=== PATIENT | male | born 1995 | race Two or more races ===

== ENCOUNTER 2017-08-06 17:48 | Inpatient (IN) | payer OTHER ==
[~2017-08-06] VITALS: Ht 177.8 cm; Wt 70.1 kg
[2017-08-06] MEDS ORDERED: MethylPREDNISolone SOD SUCC 1,000 MG in SODIUM CHLORIDE 0.9% 50 ML IV ONE (19:00)
[2017-08-06 19:08] LABS: BASOPHILS % (AUTO) 0.5 % (0.0-2.0); EOSINOPHILS % (AUTO) 1.4 % (1.0-6.0); HEMOGLOBIN 16.1 g/dL (13.5-17.5); LYMPHOCYTES # (AUTO) 1.6 K/uL (1.0-4.8); LYMPHOCYTES % (AUTO) 27.6 % (22.0-44.0); MEAN CORPUSCULAR HEMOGLOBIN 28.7 pg (26.0-34.0); MEAN CORPUSCULAR HGB CONC 33.6 G/dL (31.0-37.0); MEAN CORPUSCULAR VOLUME 85 fL (80-100); MONOCYTES # (AUTO) 0.7 K/uL (0.1-1.0); MONOCYTES % (AUTO) 11.1 % (2.0-9.0); NEUTROPHILS # (AUTO) 3.5 K/uL (1.8-7.7); NEUTROPHILS % (AUTO) 59.4 % (40.0-70.0); PLATELET COUNT (AUTO) 203 K/uL (150-450); RED BLOOD CELL COUNT(AUTO) 5.63 MIL/uL (4.50-5.90); RED CELL DISTRIBUTION WIDTH 13.1 % (11.5-14.5); WHITE BLOOD COUNT (AUTO) 5.9 K/uL (4.5-11.0)
[2017-08-06 19:21] LABS: ANION GAP 11 mmol/L (8-16); CARBON DIOXIDE 27 mmol/L (22-29); CHLORIDE 104 mmol/L (98-107); CREATININE 0.91 mg/dL (0.60-1.30); GLOMERULAR FILTR. RATE CALC > 60 mL/min (>60); POTASSIUM 4.5 mmol/L (3.5-5.1); SODIUM SERUM 142 mmol/L (136-145); UREA NITROGEN, BLOOD 5 mg/dL (7-18)
[2017-08-06 19:27] LABS: ALANINE AMINOTRANSFERASE 32 U/L (12-78); ALBUMIN 4.5 g/dL (3.4-5.0); ASPARTATE AMINOTRANSFERASE 35 U/L (15-37); BILIRUBIN,TOTAL 0.6 mg/dL (0.1-1.0)
[2017-08-06] MEDS ORDERED: GADOBUTROL 1 MMOL/ML 10 ML VIAL IVP ONE (19:33)
[2017-08-06 20:40] LABS: ERYTHROCYTE SEDIMENTATION RATE 0 MM/HR (0-15)
[2017-08-06] MEDS ORDERED: ACETAMINOPHEN 325 MG TABLET PO PRN (20:45)
[2017-08-06] MEDS ORDERED: MAGNESIUM HYDROXIDE SUSPENSION 30 ML UDCUP PO PRN (20:45)
[2017-08-06] MEDS ORDERED: ZOLPIDEM TARTRATE 5 MG TABLET PO PRN (20:45)
[2017-08-06] MEDS ORDERED: OxyCODONE HCL/ACETAMINOPHEN 5-325 MG TABLET PO PRN (20:45)
[2017-08-06 21:00] VITALS: BP 118/68
[2017-08-06] MEDS ORDERED: DEXTROSE 50%-WATER 25 GM/50 ML SYRINGE IVP PRN (21:00)
[2017-08-06] MEDS: PANTOPRAZOLE SODIUM 40 MG DR TABLET PO SCH (21:35)
[2017-08-06] MEDS: DOCUSATE SODIUM 100 MG CAPSULE PO SCH (21:36)
[2017-08-06] MEDS: CALCIUM CARBONATE 500 MG CHEWABLE TABLET CHEW SCH (21:36)
[2017-08-06 21:42] LABS: GLUCOSE,POINT OF CARE 88 MG/DL (70-110)
[2017-08-06 23:52] VITALS: BP 111/68
[2017-08-07 05:14] VITALS: BP 106/65
[2017-08-07] MEDS: INSULIN ASPART 100 UNITS/ML SQ PRN ×3 (05:57→19:54)
[2017-08-07 06:07] LABS: GLUCOSE COMMENT 1 Received Meds; GLUCOSE,POINT OF CARE 201 MG/DL (70-110)
[2017-08-07] MEDS: DOCUSATE SODIUM 100 MG CAPSULE PO SCH ×2 (09:37→19:53)
[2017-08-07] MEDS: PANTOPRAZOLE SODIUM 40 MG DR TABLET PO SCH (09:37)
[2017-08-07] MEDS: CALCIUM CARBONATE 500 MG CHEWABLE TABLET CHEW SCH ×3 (09:37→19:53)
[2017-08-07 11:41] VITALS: BP 113/74
[2017-08-07 14:12] LABS: GLUCOSE COMMENT 1 Received Meds; GLUCOSE,POINT OF CARE 158 MG/DL (70-110)
[2017-08-07 18:02] LABS: GLUCOSE,POINT OF CARE 133 MG/DL (70-110)
[2017-08-07] MEDS ORDERED: SODIUM CHLORIDE 0.9% 250 ML IV ONE (18:15)
[2017-08-07] MEDS ORDERED: SODIUM CHLORIDE 0.9% IV SCH (19:00)
[2017-08-07] MEDS ORDERED: METHYLPREDNISOLONE SOD SUCC IV SCH (19:00)
[2017-08-07 20:11] VITALS: BP 111/63
[2017-08-07 20:33] LABS: GLUCOSE COMMENT 1 Received Meds; GLUCOSE,POINT OF CARE 147 MG/DL (70-110)
[2017-08-08] VITALS (7 sets, daily range): BP systolic 90–131; BP diastolic 54–74
[2017-08-08] MEDS: INSULIN ASPART 100 UNITS/ML SQ PRN ×2 (05:38→17:53)
[2017-08-08 05:47] LABS: GLUCOSE COMMENT 1 Received Meds; GLUCOSE,POINT OF CARE 174 MG/DL (70-110)
[2017-08-08] MEDS: CALCIUM CARBONATE 500 MG CHEWABLE TABLET CHEW SCH ×3 (08:07→20:47)
[2017-08-08] MEDS: DOCUSATE SODIUM 100 MG CAPSULE PO SCH ×2 (08:07→20:47)
[2017-08-08] MEDS: PANTOPRAZOLE SODIUM 40 MG DR TABLET PO SCH (08:07)
[2017-08-08 11:37] LABS: GLUCOSE COMMENT 1 Received Meds; GLUCOSE,POINT OF CARE 105 MG/DL (70-110)
[2017-08-08] MEDS: MethylPREDNISolone SOD SUCC 1,000 MG in SODIUM CHLORIDE 0.9% 50 ML IV SCH (12:40)
[2017-08-08 17:31] LABS: GLUCOSE COMMENT 1 Received Meds; GLUCOSE,POINT OF CARE 170 MG/DL (70-110)
[2017-08-08 23:22] LABS: GLUCOSE,POINT OF CARE 137 MG/DL (70-110)
[2017-08-09 04:59] VITALS: BP 111/63
[2017-08-09 06:37] LABS: GLUCOSE,POINT OF CARE 125 MG/DL (70-110)
[2017-08-09 07:27] VITALS: BP 104/63
[2017-08-09] MEDS ORDERED: GADOBUTROL 1 MMOL/ML 10 ML VIAL IVP ONE (08:08)
[2017-08-09] MEDS: PANTOPRAZOLE SODIUM 40 MG DR TABLET PO SCH (09:18)
[2017-08-09] MEDS: CALCIUM CARBONATE 500 MG CHEWABLE TABLET CHEW SCH ×3 (09:18→20:22)
[2017-08-09] MEDS: DOCUSATE SODIUM 100 MG CAPSULE PO SCH ×2 (09:18→20:23)
[2017-08-09] MEDS: MethylPREDNISolone SOD SUCC 1,000 MG in SODIUM CHLORIDE 0.9% 50 ML IV SCH (11:31)
[2017-08-09 11:36] VITALS: BP 110/71
[2017-08-09 11:47] LABS: GLUCOSE,POINT OF CARE 91 MG/DL (70-110)
[2017-08-09 15:43] VITALS: BP 107/54
[2017-08-09] MEDS: INSULIN ASPART 100 UNITS/ML SQ PRN ×2 (17:44→20:23)
[2017-08-09 19:42] VITALS: BP 117/68
[2017-08-09 19:57] LABS: GLUCOSE,POINT OF CARE 145 MG/DL (70-110)
[2017-08-09 21:12] LABS: GLUCOSE COMMENT 1 Received Meds; GLUCOSE,POINT OF CARE 145 MG/DL (70-110)
[2017-08-09 23:54] VITALS: BP 105/54
[2017-08-10 04:43] VITALS: BP 117/67
[2017-08-10 06:03] LABS: GLUCOSE,POINT OF CARE 110 MG/DL (70-110)
[2017-08-10 07:34] VITALS: BP 104/69
[2017-08-10] MEDS: PANTOPRAZOLE SODIUM 40 MG DR TABLET PO SCH (08:32)
[2017-08-10] MEDS: CALCIUM CARBONATE 500 MG CHEWABLE TABLET CHEW SCH ×3 (08:32→20:32)
[2017-08-10] MEDS: DOCUSATE SODIUM 100 MG CAPSULE PO SCH ×2 (08:32→20:32)
[2017-08-10 11:23] VITALS: BP 109/78
[2017-08-10 12:13] LABS: GLUCOSE,POINT OF CARE 69 MG/DL (70-110)
[2017-08-10] MEDS: MethylPREDNISolone SOD SUCC 1,000 MG in SODIUM CHLORIDE 0.9% 50 ML IV SCH (13:16)
[2017-08-10 16:22] VITALS: BP 110/66
[2017-08-10 16:26] LABS: INR 1.1 (0.9-1.1); PROTHROMBIN TIME 11.2 SEC (9.4-11.6)
[2017-08-10] MEDS: INSULIN ASPART 100 UNITS/ML SQ PRN ×2 (17:50→23:33)
[2017-08-10 17:57] LABS: GLUCOSE COMMENT 1 Received Meds; GLUCOSE,POINT OF CARE 160 MG/DL (70-110)
[2017-08-10 19:55] VITALS: BP 112/72
[2017-08-10 22:02] LABS: GLUCOSE,POINT OF CARE 192 MG/DL (70-110)
[2017-08-11 00:20] VITALS: BP 113/63
[2017-08-11 04:20] VITALS: BP 101/56
[2017-08-11 06:17] LABS: GLUCOSE,POINT OF CARE 113 MG/DL (70-110)
[2017-08-11 06:36] LABS: INR 1.1 (0.9-1.1); PROTHROMBIN TIME 11.1 SEC (9.4-11.6)
[2017-08-11 06:49] LABS: HEMATOCRIT 47.5 % (41-53); HEMOGLOBIN 15.7 g/dL (13.5-17.5); MEAN CORPUSCULAR HEMOGLOBIN 28.6 pg (26.0-34.0); MEAN CORPUSCULAR HGB CONC 33.1 G/dL (31.0-37.0); MEAN CORPUSCULAR VOLUME 87 fL (80-100); RED BLOOD CELL COUNT(AUTO) 5.48 MIL/uL (4.50-5.90); RED CELL DISTRIBUTION WIDTH 13.1 % (11.5-14.5)
[2017-08-11 06:50] LABS: BASOPHILS % (AUTO) 0.1 % (0.0-2.0); EOSINOPHILS % (AUTO) 0 % (1.0-6.0); LYMPHOCYTES % (AUTO) 6.8 % (22.0-44.0); MONOCYTES # (AUTO) 0.5 K/uL (0.1-1.0); MONOCYTES % (AUTO) 3.7 % (2.0-9.0); NEUTROPHILS # (AUTO) 12.5 K/uL (1.8-7.7); NEUTROPHILS % (AUTO) 89.4 % (40.0-70.0); PLATELET COUNT (AUTO) 203 K/uL (150-450)
[2017-08-11 06:51] LABS: RBC MORPHOLOGY COMMENT NORMAL RBC MORPH
[2017-08-11 07:03] LABS: ALANINE AMINOTRANSFERASE 25 U/L (12-78); ALBUMIN 3.8 g/dL (3.4-5.0); ANION GAP 8 mmol/L (8-16); ASPARTATE AMINOTRANSFERASE 10 U/L (15-37); BILIRUBIN,TOTAL 0.4 mg/dL (0.1-1.0); CARBON DIOXIDE 26 mmol/L (22-29); CHLORIDE 106 mmol/L (98-107); CREATININE 0.64 mg/dL (0.60-1.30); GLOMERULAR FILTR. RATE CALC > 60 mL/min (>60); PHOSPHORUS 4.4 mg/dL (2.5-4.9); SODIUM SERUM 140 mmol/L (136-145); TOTAL PROTEIN, SERUM 7.1 g/dL (6.4-8.2); UREA NITROGEN, BLOOD 7 mg/dL (7-18)
[2017-08-11] MEDS ORDERED: FentaNYL CITRATE-PF 100 MCG/2 ML VIAL ONE (07:12)
[2017-08-11] MEDS ORDERED: MIDAZOLAM HCL 2 MG/2 ML VIAL ONE (07:12)
[2017-08-11] MEDS ORDERED: CALCIUM GLUCONATE 100 MG/ML 10 ML IVP ONE (07:45)
[2017-08-11] MEDS ORDERED: SODIUM CITRATE 4% CATH FLUSH 5 ML SYRINGE IVP PRN (07:45)
[2017-08-11] MEDS ORDERED: LIDOCAINE HCL/PF 1% 30 ML VIAL ONE (07:57)
[2017-08-11] MEDS ORDERED: HEPARIN SODIUM 1000 UNITS/NS 500 ML ONE (07:57)
[2017-08-11] MEDS ORDERED: ALBUMIN HUMAN IV ONE ×2 (08:00)
[2017-08-11] MEDS ORDERED: HEPARIN SODIUM,PORCINE 1,000 UNITS/ML 10 ML VIAL ONE (08:03)
[2017-08-11] MEDS ORDERED: SODIUM CITRATE 4% IVCATH PRN ×2 (08:30)
[2017-08-11 09:57] VITALS: BP 118/71
[2017-08-11] MEDS ORDERED: SODIUM CHLORIDE 0.9% 1,000 ML IV ONE (10:18)
[2017-08-11] MEDS ORDERED: SODIUM CHLORIDE 0.9% 500 ML IV ONE (10:18)
[2017-08-11] MEDS ORDERED: CALCIUM GLUCONATE 3,000 MG in SODIUM CHLORIDE 0.9% 250 ML IV ONE (11:00)
[2017-08-11 11:19] VITALS: BP 115/69
[2017-08-11] MEDS: DOCUSATE SODIUM 100 MG CAPSULE PO SCH ×2 (11:29→21:15)
[2017-08-11] MEDS: PANTOPRAZOLE SODIUM 40 MG DR TABLET PO SCH (11:29)
[2017-08-11] MEDS: CALCIUM CARBONATE 500 MG CHEWABLE TABLET CHEW SCH ×7 (11:29→21:15)
[2017-08-11] MEDS ORDERED: ALENDRONATE SODIUM 70 MG TABLET PO ONE (11:45)
[2017-08-11 12:52] LABS: GLUCOSE,POINT OF CARE 108 MG/DL (70-110)
[2017-08-11 15:18] VITALS: BP 110/63
[2017-08-11] MEDS ORDERED: SODIUM CITRATE 4% CATH FLUSH 5 ML SYRINGE IVCATH PRN (15:30)
[2017-08-11] MEDS: PredniSONE 20 MG TABLET PO SCH (16:39)
[2017-08-11 18:12] LABS: BASOPHILS % (AUTO) 0.4 % (0.0-2.0); EOSINOPHILS % (AUTO) 0.1 % (1.0-6.0); HEMATOCRIT 52.8 % (41-53); HEMOGLOBIN 17.6 g/dL (13.5-17.5); LYMPHOCYTES # (AUTO) 2.4 K/uL (1.0-4.8); LYMPHOCYTES % (AUTO) 11.6 % (22.0-44.0); MEAN CORPUSCULAR HEMOGLOBIN 28.8 pg (26.0-34.0); MEAN CORPUSCULAR HGB CONC 33.3 G/dL (31.0-37.0); MEAN CORPUSCULAR VOLUME 86 fL (80-100); MONOCYTES # (AUTO) 2.1 K/uL (0.1-1.0); MONOCYTES % (AUTO) 10.2 % (2.0-9.0); NEUTROPHILS % (AUTO) 77.7 % (40.0-70.0); PLATELET COUNT (AUTO) 196 K/uL (150-450); RED BLOOD CELL COUNT(AUTO) 6.11 MIL/uL (4.50-5.90); RED CELL DISTRIBUTION WIDTH 12.9 % (11.5-14.5); WHITE BLOOD COUNT (AUTO) 20.6 K/uL (4.5-11.0)
[2017-08-11 18:24] LABS: ANION GAP 8 mmol/L (8-16); CALCIUM, TOTAL 9.1 mg/dL (8.8-10.5); CARBON DIOXIDE 32 mmol/L (22-29); CHLORIDE 107 mmol/L (98-107); CREATININE 0.87 mg/dL (0.60-1.30); GLOMERULAR FILTR. RATE CALC > 60 mL/min (>60); POTASSIUM 4.3 mmol/L (3.5-5.1); SODIUM SERUM 147 mmol/L (136-145); UREA NITROGEN, BLOOD 8 mg/dL (7-18)
[2017-08-11 18:27] LABS: PHOSPHORUS 4.2 mg/dL (2.5-4.9)
[2017-08-11 19:27] LABS: GLUCOSE,POINT OF CARE 122 MG/DL (70-110)
[2017-08-11 20:00] VITALS: BP 118/62
[2017-08-11] MEDS: INSULIN ASPART 100 UNITS/ML SQ PRN (21:22)
[2017-08-11 21:51] LABS: GLUCOSE,POINT OF CARE 150 MG/DL (70-110)
[2017-08-12] VITALS (7 sets, daily range): BP systolic 106–125; BP diastolic 50–72
[2017-08-12] MEDS ORDERED: CALCIUM GLUCONATE 3,000 MG in SODIUM CHLORIDE 0.9% 250 ML IV ONE (06:00)
[2017-08-12] MEDS ORDERED: ALBUMIN HUMAN IV ONE ×2 (06:00→10:00)
[2017-08-12 07:03] LABS: GLUCOSE,POINT OF CARE 104 MG/DL (70-110)
[2017-08-12] MEDS ORDERED: SODIUM CHLORIDE 0.9% 1,000 ML IV ONE (08:22)
[2017-08-12] MEDS: PANTOPRAZOLE SODIUM 40 MG DR TABLET PO SCH (08:25)
[2017-08-12] MEDS: DOCUSATE SODIUM 100 MG CAPSULE PO SCH ×2 (08:25→22:15)
[2017-08-12] MEDS: PredniSONE 20 MG TABLET PO SCH (08:25)
[2017-08-12 09:38] LABS: BASOPHILS % (AUTO) 0.3 % (0.0-2.0); EOSINOPHILS % (AUTO) 0.1 % (1.0-6.0); HEMATOCRIT 49.1 % (41-53); HEMOGLOBIN 16.3 g/dL (13.5-17.5); LYMPHOCYTES # (AUTO) 1.7 K/uL (1.0-4.8); MEAN CORPUSCULAR HEMOGLOBIN 28.7 pg (26.0-34.0); MEAN CORPUSCULAR HGB CONC 33.1 G/dL (31.0-37.0); MEAN CORPUSCULAR VOLUME 87 fL (80-100); MONOCYTES # (AUTO) 1.5 K/uL (0.1-1.0); MONOCYTES % (AUTO) 9.2 % (2.0-9.0); NEUTROPHILS # (AUTO) 12.6 K/uL (1.8-7.7); NEUTROPHILS % (AUTO) 79.4 % (40.0-70.0); PLATELET COUNT (AUTO) 163 K/uL (150-450); RED BLOOD CELL COUNT(AUTO) 5.66 MIL/uL (4.50-5.90); RED CELL DISTRIBUTION WIDTH 13.1 % (11.5-14.5); WHITE BLOOD COUNT (AUTO) 15.9 K/uL (4.5-11.0)
[2017-08-12 09:51] LABS: ANION GAP 8 mmol/L (8-16); CALCIUM, TOTAL 8.7 mg/dL (8.8-10.5); CARBON DIOXIDE 29 mmol/L (22-29); CHLORIDE 106 mmol/L (98-107); CREATININE 0.83 mg/dL (0.60-1.30); GLOMERULAR FILTR. RATE CALC > 60 mL/min (>60); POTASSIUM 3.8 mmol/L (3.5-5.1); SODIUM SERUM 143 mmol/L (136-145); UREA NITROGEN, BLOOD 7 mg/dL (7-18)
[2017-08-12 09:55] LABS: PHOSPHORUS 3.4 mg/dL (2.5-4.9)
[2017-08-12 11:25] LABS: INR 1.1 (0.9-1.1); PROTHROMBIN TIME 11.9 SEC (9.4-11.6)
[2017-08-12] MEDS: CALCIUM CARBONATE 500 MG CHEWABLE TABLET CHEW SCH ×5 (11:30→22:15)
[2017-08-12 14:17] LABS: GLUCOSE,POINT OF CARE 96 MG/DL (70-110)
[2017-08-12 17:42] LABS: GLUCOSE,POINT OF CARE 124 MG/DL (70-110)
[2017-08-13 02:07] LABS: GLUCOSE,POINT OF CARE 114 MG/DL (70-110)
[2017-08-13 04:24] VITALS: BP 103/59
[2017-08-13 06:30] LABS: BASOPHILS % (AUTO) 0.3 % (0.0-2.0); EOSINOPHILS % (AUTO) 0.9 % (1.0-6.0); HEMATOCRIT 45.3 % (41-53); LYMPHOCYTES # (AUTO) 3.5 K/uL (1.0-4.8); LYMPHOCYTES % (AUTO) 24.6 % (22.0-44.0); MEAN CORPUSCULAR HEMOGLOBIN 28.8 pg (26.0-34.0); MEAN CORPUSCULAR HGB CONC 33.2 G/dL (31.0-37.0); MEAN CORPUSCULAR VOLUME 87 fL (80-100); MONOCYTES # (AUTO) 1.6 K/uL (0.1-1.0); NEUTROPHILS # (AUTO) 9.1 K/uL (1.8-7.7); NEUTROPHILS % (AUTO) 63.2 % (40.0-70.0); PLATELET COUNT (AUTO) 151 K/uL (150-450); RED BLOOD CELL COUNT(AUTO) 5.21 MIL/uL (4.50-5.90); RED CELL DISTRIBUTION WIDTH 13.2 % (11.5-14.5); WHITE BLOOD COUNT (AUTO) 14.4 K/uL (4.5-11.0)
[2017-08-13 06:46] LABS: INR 1.1 (0.9-1.1); PROTHROMBIN TIME 11.5 SEC (9.4-11.6)
[2017-08-13 07:01] LABS: GLUCOSE,POINT OF CARE 69 MG/DL (70-110)
[2017-08-13 07:07] LABS: GLUCOSE,POINT OF CARE 158 MG/DL (70-110)
[2017-08-13 07:22] VITALS: BP 105/58
[2017-08-13 07:22] LABS: ANION GAP 7 mmol/L (8-16); CALCIUM, TOTAL 8.3 mg/dL (8.8-10.5); CARBON DIOXIDE 28 mmol/L (22-29); CHLORIDE 106 mmol/L (98-107); CREATININE 0.65 mg/dL (0.60-1.30); GLOMERULAR FILTR. RATE CALC > 60 mL/min (>60); PHOSPHORUS 4.1 mg/dL (2.5-4.9); POTASSIUM 3.8 mmol/L (3.5-5.1); SODIUM SERUM 141 mmol/L (136-145); UREA NITROGEN, BLOOD 9 mg/dL (7-18)
[2017-08-13] MEDS ORDERED: CALCIUM OYSTER SHELL 500 MG TABLET PO ONE (08:00)
[2017-08-13] MEDS ORDERED: CALCIUM GLUCONATE 100 MG/ML 10 ML IVP ONE (08:00)
[2017-08-13] MEDS ORDERED: ALBUMIN HUMAN IV ONE (08:00)
[2017-08-13] MEDS ORDERED: CALCIUM GLUCONATE 3,000 MG in SODIUM CHLORIDE 0.9% 250 ML IV ONE (08:15)
[2017-08-13] MEDS: DOCUSATE SODIUM 100 MG CAPSULE PO SCH ×2 (09:21→20:36)
[2017-08-13] MEDS: PredniSONE 20 MG TABLET PO SCH (09:21)
[2017-08-13] MEDS: PANTOPRAZOLE SODIUM 40 MG DR TABLET PO SCH (09:21)
[2017-08-13] MEDS: CALCIUM CARBONATE 500 MG CHEWABLE TABLET CHEW SCH ×3 (09:22→15:20)
[2017-08-13 11:20] VITALS: BP 112/59
[2017-08-13 11:42] LABS: ANION GAP 8 mmol/L (8-16); CALCIUM, TOTAL 8.9 mg/dL (8.8-10.5); CARBON DIOXIDE 27 mmol/L (22-29); CHLORIDE 107 mmol/L (98-107); CREATININE 0.66 mg/dL (0.60-1.30); GLOMERULAR FILTR. RATE CALC > 60 mL/min (>60); POTASSIUM 3.9 mmol/L (3.5-5.1); SODIUM SERUM 142 mmol/L (136-145); UREA NITROGEN, BLOOD 7 mg/dL (7-18)
[2017-08-13] MEDS ORDERED: SODIUM CHLORIDE 0.9% 1,000 ML IV ONE (14:04)
[2017-08-13 15:26] VITALS: BP 119/54
[2017-08-13 17:24] LABS: GLUCOSE,POINT OF CARE 101 MG/DL (70-110)
[2017-08-13 17:42] LABS: GLUCOSE,POINT OF CARE 94 MG/DL (70-110)
[2017-08-13 20:16] VITALS: BP 122/74
[2017-08-13] MEDS ORDERED: CALCIUM OYSTER SHELL 500 MG TABLET PO SCH (21:00)
[2017-08-13 21:17] LABS: GLUCOSE,POINT OF CARE 107 MG/DL (70-110)
[2017-08-13 23:29] VITALS: BP 111/66
[2017-08-14 04:16] VITALS: BP 116/64
[2017-08-14 06:04] LABS: BASOPHILS % (AUTO) 0.2 % (0.0-2.0); EOSINOPHILS % (AUTO) 1.3 % (1.0-6.0); HEMATOCRIT 45.9 % (41-53); HEMOGLOBIN 15.3 g/dL (13.5-17.5); LYMPHOCYTES # (AUTO) 3.9 K/uL (1.0-4.8); LYMPHOCYTES % (AUTO) 24.8 % (22.0-44.0); MEAN CORPUSCULAR HEMOGLOBIN 28.9 pg (26.0-34.0); MEAN CORPUSCULAR HGB CONC 33.2 G/dL (31.0-37.0); MEAN CORPUSCULAR VOLUME 87 fL (80-100); MONOCYTES # (AUTO) 1.5 K/uL (0.1-1.0); MONOCYTES % (AUTO) 9.8 % (2.0-9.0); NEUTROPHILS # (AUTO) 10.1 K/uL (1.8-7.7); NEUTROPHILS % (AUTO) 63.9 % (40.0-70.0); PLATELET COUNT (AUTO) 155 K/uL (150-450); RED BLOOD CELL COUNT(AUTO) 5.29 MIL/uL (4.50-5.90); RED CELL DISTRIBUTION WIDTH 13.3 % (11.5-14.5); WHITE BLOOD COUNT (AUTO) 15.8 K/uL (4.5-11.0)
[2017-08-14 06:18] LABS: INR 1.4 (0.9-1.1); PROTHROMBIN TIME 14.3 SEC (9.4-11.6)
[2017-08-14 06:37] LABS: ANION GAP 9 mmol/L (8-16); CALCIUM, TOTAL 8.6 mg/dL (8.8-10.5); CARBON DIOXIDE 27 mmol/L (22-29); CHLORIDE 107 mmol/L (98-107); GLOMERULAR FILTR. RATE CALC > 60 mL/min (>60); PHOSPHORUS 4.2 mg/dL (2.5-4.9); POTASSIUM 3.8 mmol/L (3.5-5.1); SODIUM SERUM 143 mmol/L (136-145); UREA NITROGEN, BLOOD 5 mg/dL (7-18)
[2017-08-14 07:02] LABS: GLUCOSE,POINT OF CARE 100 MG/DL (70-110)
[2017-08-14 07:02] LABS: GLUCOSE,POINT OF CARE 65 MG/DL (70-110)
[2017-08-14 07:30] VITALS: BP 113/63
[2017-08-14] MEDS ORDERED: CALCIUM OYSTER SHELL 500 MG TABLET PO SCH (09:00)
[2017-08-14] MEDS: PANTOPRAZOLE SODIUM 40 MG DR TABLET PO SCH (09:33)
[2017-08-14] MEDS: PredniSONE 20 MG TABLET PO SCH (09:34)
[2017-08-14] MEDS: DOCUSATE SODIUM 100 MG CAPSULE PO SCH ×2 (09:34→20:00)
[2017-08-14] MEDS: CALCIUM OYSTER SHELL 500 MG TABLET PO SCH ×3 (09:37→20:00)
[2017-08-14] MEDS ORDERED: HEPARIN SODIUM,PORCINE 1,000 UNITS/ML VIAL IVP ONE (10:57)
[2017-08-14 11:24] VITALS: BP 106/69
[2017-08-14 12:48] LABS: GLUCOSE,POINT OF CARE 121 MG/DL (70-110)
[2017-08-14 15:43] VITALS: BP 132/62
[2017-08-14 17:33] LABS: GLUCOSE,POINT OF CARE 229 MG/DL (70-110)
[2017-08-14] MEDS: INSULIN ASPART 100 UNITS/ML SQ PRN (17:42)
[2017-08-14 19:45] VITALS: BP 119/69
[2017-08-14 23:27] LABS: GLUCOSE COMMENT 1 Received Meds; GLUCOSE COMMENT 2 Juice/Food/D50 Given; GLUCOSE,POINT OF CARE 120 MG/DL (70-110)
[2017-08-14 23:43] VITALS: BP 110/58
[2017-08-15] VITALS (9 sets, daily range): BP systolic 117–139; BP diastolic 58–78
[2017-08-15 04:49] LABS: ANION GAP 3 mmol/L (8-16); CALCIUM, TOTAL 8.7 mg/dL (8.8-10.5); CARBON DIOXIDE 32 mmol/L (22-29); CHLORIDE 106 mmol/L (98-107); CREATININE 0.67 mg/dL (0.60-1.30); GLOMERULAR FILTR. RATE CALC > 60 mL/min (>60); PHOSPHORUS 4.9 mg/dL (2.5-4.9); POTASSIUM 4.3 mmol/L (3.5-5.1); SODIUM SERUM 141 mmol/L (136-145); UREA NITROGEN, BLOOD 4 mg/dL (7-18)
[2017-08-15 04:53] LABS: INR 1.1 (0.9-1.1); PROTHROMBIN TIME 11.5 SEC (9.4-11.6)
[2017-08-15 05:28] LABS: BASOPHILS % (AUTO) 0.1 % (0.0-2.0); HEMATOCRIT 45.2 % (41-53); HEMOGLOBIN 15.1 g/dL (13.5-17.5); LYMPHOCYTES # (AUTO) 3.3 K/uL (1.0-4.8); LYMPHOCYTES % (AUTO) 21.4 % (22.0-44.0); MEAN CORPUSCULAR HEMOGLOBIN 28.9 pg (26.0-34.0); MEAN CORPUSCULAR HGB CONC 33.3 G/dL (31.0-37.0); MEAN CORPUSCULAR VOLUME 87 fL (80-100); MONOCYTES # (AUTO) 1.9 K/uL (0.1-1.0); MONOCYTES % (AUTO) 12.1 % (2.0-9.0); NEUTROPHILS # (AUTO) 10.2 K/uL (1.8-7.7); NEUTROPHILS % (AUTO) 65.4 % (40.0-70.0); PLATELET COUNT (AUTO) 166 K/uL (150-450); RED CELL DISTRIBUTION WIDTH 13.2 % (11.5-14.5); WHITE BLOOD COUNT (AUTO) 15.7 K/uL (4.5-11.0)
[2017-08-15 06:33] LABS: GLUCOSE COMMENT 1 Juice/Food/D50 Given; GLUCOSE,POINT OF CARE 76 MG/DL (70-110)
[2017-08-15] MEDS ORDERED: CALCIUM GLUCONATE 100 MG/ML 10 ML IVP ONE (08:45)
[2017-08-15] MEDS: -PHARMACY NOTE- MISC SCH ×2 (09:00)
[2017-08-15] MEDS ORDERED: CALCIUM GLUCONATE 1,000 MG in DEXTROSE 5%-WATER 50 ML IV ONE (09:15)
[2017-08-15] MEDS: DOCUSATE SODIUM 100 MG CAPSULE PO SCH ×2 (09:36→21:42)
[2017-08-15] MEDS: CALCIUM OYSTER SHELL 500 MG TABLET PO SCH ×3 (09:36→21:42)
[2017-08-15] MEDS: PredniSONE 20 MG TABLET PO SCH (09:36)
[2017-08-15] MEDS: PANTOPRAZOLE SODIUM 40 MG DR TABLET PO SCH (09:36)
[2017-08-15 11:58] LABS: GLUCOSE,POINT OF CARE 103 MG/DL (70-110)
[2017-08-15] MEDS ORDERED: SODIUM CHLORIDE 0.9% 250 ML IV ONE (13:34)
[2017-08-15] MEDS ORDERED: SODIUM CHLORIDE 0.9% 1,000 ML IV ONE (13:34)
[2017-08-15] MEDS ORDERED: SODIUM CITRATE 4% IVCATH PRN (13:45)
[2017-08-15] MEDS: CALCIUM GLUCONATE 3,000 MG in SODIUM CHLORIDE 0.9% 250 ML IV PRN (17:17)
[2017-08-15] MEDS: CALCIUM CARBONATE 500 MG CHEWABLE TABLET CHEW PRN ×2 (17:41→18:41)
[2017-08-15 23:38] LABS: ANION GAP 5 mmol/L (8-16); CALCIUM, TOTAL 8.9 mg/dL (8.8-10.5); CARBON DIOXIDE 30 mmol/L (22-29); CHLORIDE 107 mmol/L (98-107); GLOMERULAR FILTR. RATE CALC > 60 mL/min (>60); POTASSIUM 4.8 mmol/L (3.5-5.1); SODIUM SERUM 142 mmol/L (136-145); UREA NITROGEN, BLOOD 6 mg/dL (7-18)
[2017-08-16] VITALS (7 sets, daily range): BP systolic 104–149; BP diastolic 64–79
[2017-08-16 04:57] LABS: GLUCOSE,POINT OF CARE 131 MG/DL (70-110)
[2017-08-16 06:24] LABS: BASOPHILS % (AUTO) 0.3 % (0.0-2.0); EOSINOPHILS % (AUTO) 0.4 % (1.0-6.0); HEMATOCRIT 47.5 % (41-53); HEMOGLOBIN 15.8 g/dL (13.5-17.5); LYMPHOCYTES # (AUTO) 4.2 K/uL (1.0-4.8); MEAN CORPUSCULAR HEMOGLOBIN 28.9 pg (26.0-34.0); MEAN CORPUSCULAR HGB CONC 33.3 G/dL (31.0-37.0); MEAN CORPUSCULAR VOLUME 87 fL (80-100); MONOCYTES # (AUTO) 2.2 K/uL (0.1-1.0); NEUTROPHILS # (AUTO) 15.5 K/uL (1.8-7.7); NEUTROPHILS % (AUTO) 70.3 % (40.0-70.0); PLATELET COUNT (AUTO) 172 K/uL (150-450); RED BLOOD CELL COUNT(AUTO) 5.48 MIL/uL (4.50-5.90); RED CELL DISTRIBUTION WIDTH 13.3 % (11.5-14.5)
[2017-08-16 06:44] LABS: ANION GAP 7 mmol/L (8-16); CALCIUM, TOTAL 9.1 mg/dL (8.8-10.5); CARBON DIOXIDE 31 mmol/L (22-29); CHLORIDE 106 mmol/L (98-107); CREATININE 0.69 mg/dL (0.60-1.30); GLOMERULAR FILTR. RATE CALC > 60 mL/min (>60); PHOSPHORUS 5.3 mg/dL (2.5-4.9); POTASSIUM 3.8 mmol/L (3.5-5.1); SODIUM SERUM 144 mmol/L (136-145); UREA NITROGEN, BLOOD 8 mg/dL (7-18)
[2017-08-16 07:18] LABS: INR 1.4 (0.9-1.1); PROTHROMBIN TIME 14.5 SEC (9.4-11.6)
[2017-08-16] MEDS: -PHARMACY NOTE- MISC SCH ×2 (09:00)
[2017-08-16] MEDS: DOCUSATE SODIUM 100 MG CAPSULE PO SCH ×2 (09:13→20:07)
[2017-08-16] MEDS: PANTOPRAZOLE SODIUM 40 MG DR TABLET PO SCH (09:13)
[2017-08-16] MEDS: CALCIUM OYSTER SHELL 500 MG TABLET PO SCH ×3 (09:14→20:07)
[2017-08-16] MEDS: PredniSONE 20 MG TABLET PO SCH (09:14)
[2017-08-16 14:33] LABS: GLUCOSE,POINT OF CARE 85 MG/DL (70-110)
[2017-08-16 14:33] LABS: GLUCOSE,POINT OF CARE 123 MG/DL (70-110)
[2017-08-16 14:37] LABS: GLUCOSE,POINT OF CARE 91 MG/DL (70-110)
[2017-08-17 01:37] LABS: GLUCOSE COMMENT 1 Received Meds; GLUCOSE,POINT OF CARE 121 MG/DL (70-110)
[2017-08-17 01:37] LABS: GLUCOSE,POINT OF CARE 107 MG/DL (70-110)
[2017-08-17 03:30] VITALS: BP 104/50
[2017-08-17 06:07] LABS: GLUCOSE,POINT OF CARE 70 MG/DL (70-110)
[2017-08-17 06:14] LABS: ANION GAP 9 mmol/L (8-16); CALCIUM, TOTAL 8.9 mg/dL (8.8-10.5); CARBON DIOXIDE 27 mmol/L (22-29); CHLORIDE 104 mmol/L (98-107); CREATININE 0.65 mg/dL (0.60-1.30); GLOMERULAR FILTR. RATE CALC > 60 mL/min (>60); POTASSIUM 3.9 mmol/L (3.5-5.1); SODIUM SERUM 140 mmol/L (136-145); UREA NITROGEN, BLOOD 6 mg/dL (7-18)
[2017-08-17 06:16] LABS: INR 1.1 (0.9-1.1); PROTHROMBIN TIME 11.6 SEC (9.4-11.6)
[2017-08-17 07:08] LABS: BASOPHILS % (AUTO) 0.4 % (0.0-2.0); EOSINOPHILS % (AUTO) 1.4 % (1.0-6.0); HEMOGLOBIN 15.5 g/dL (13.5-17.5); LYMPHOCYTES # (AUTO) 4.1 K/uL (1.0-4.8); LYMPHOCYTES % (AUTO) 20.9 % (22.0-44.0); MEAN CORPUSCULAR HEMOGLOBIN 28.9 pg (26.0-34.0); MEAN CORPUSCULAR HGB CONC 33.7 G/dL (31.0-37.0); MEAN CORPUSCULAR VOLUME 86 fL (80-100); MONOCYTES # (AUTO) 2.2 K/uL (0.1-1.0); NEUTROPHILS # (AUTO) 13.1 K/uL (1.8-7.7); NEUTROPHILS % (AUTO) 66.3 % (40.0-70.0); PLATELET COUNT (AUTO) 172 K/uL (150-450); RED BLOOD CELL COUNT(AUTO) 5.37 MIL/uL (4.50-5.90); RED CELL DISTRIBUTION WIDTH 13.4 % (11.5-14.5); WHITE BLOOD COUNT (AUTO) 19.7 K/uL (4.5-11.0)
[2017-08-17 07:23] VITALS: BP 102/55
[2017-08-17] MEDS: PANTOPRAZOLE SODIUM 40 MG DR TABLET PO SCH (08:21)
[2017-08-17] MEDS: PredniSONE 20 MG TABLET PO SCH (08:22)
[2017-08-17] MEDS: DOCUSATE SODIUM 100 MG CAPSULE PO SCH ×2 (08:22→20:10)
[2017-08-17] MEDS: CALCIUM OYSTER SHELL 500 MG TABLET PO SCH ×3 (08:22→20:10)
[2017-08-17] MEDS: -PHARMACY NOTE- MISC SCH ×2 (09:00)
[2017-08-17] MEDS: INSULIN ASPART 100 UNITS/ML SQ PRN ×2 (11:33→18:38)
[2017-08-17 11:43] VITALS: BP 132/68
[2017-08-17 13:12] LABS: GLUCOSE,POINT OF CARE 128 MG/DL (70-110)
[2017-08-17] MEDS ORDERED: SODIUM CHLORIDE 0.9% 1,000 ML IV ONE (14:40)
[2017-08-17] MEDS: CALCIUM GLUCONATE 3,000 MG in SODIUM CHLORIDE 0.9% 250 ML IV PRN (16:32)
[2017-08-17] MEDS: ALBUMIN HUMAN IV PRN (16:43)
[2017-08-17] MEDS: CALCIUM CARBONATE 500 MG CHEWABLE TABLET CHEW PRN (16:44)
[2017-08-17] MEDS ORDERED: SODIUM CITRATE 4% IVCATH PRN (16:45)
[2017-08-17 18:35] VITALS: BP 124/77
[2017-08-17 19:08] VITALS: BP 117/77
[2017-08-17 19:47] LABS: GLUCOSE,POINT OF CARE 109 MG/DL (70-110)
[2017-08-17 20:38] LABS: GLUCOSE,POINT OF CARE 108 MG/DL (70-110)
[2017-08-18] VITALS (8 sets, daily range): BP systolic 106–142; BP diastolic 53–94
[2017-08-18 05:54] LABS: BASOPHILS % (AUTO) 0.4 % (0.0-2.0); EOSINOPHILS % (AUTO) 2.8 % (1.0-6.0); HEMATOCRIT 43.4 % (41-53); HEMOGLOBIN 14.4 g/dL (13.5-17.5); LYMPHOCYTES % (AUTO) 22.3 % (22.0-44.0); MEAN CORPUSCULAR HGB CONC 33.2 G/dL (31.0-37.0); MEAN CORPUSCULAR VOLUME 87 fL (80-100); MONOCYTES # (AUTO) 1.6 K/uL (0.1-1.0); NEUTROPHILS # (AUTO) 11.9 K/uL (1.8-7.7); NEUTROPHILS % (AUTO) 65.5 % (40.0-70.0); PLATELET COUNT (AUTO) 161 K/uL (150-450); RED BLOOD CELL COUNT(AUTO) 4.98 MIL/uL (4.50-5.90); RED CELL DISTRIBUTION WIDTH 13.9 % (11.5-14.5); WHITE BLOOD COUNT (AUTO) 18.1 K/uL (4.5-11.0)
[2017-08-18 06:10] LABS: INR 1.4 (0.9-1.1); PROTHROMBIN TIME 14.3 SEC (9.4-11.6)
[2017-08-18 07:02] LABS: ANION GAP 8 mmol/L (8-16); CALCIUM, TOTAL 8.5 mg/dL (8.8-10.5); CARBON DIOXIDE 27 mmol/L (22-29); CHLORIDE 108 mmol/L (98-107); GLOMERULAR FILTR. RATE CALC > 60 mL/min (>60); POTASSIUM 3.6 mmol/L (3.5-5.1); SODIUM SERUM 143 mmol/L (136-145); UREA NITROGEN, BLOOD 5 mg/dL (7-18)
[2017-08-18] MEDS: PANTOPRAZOLE SODIUM 40 MG DR TABLET PO SCH (08:31)
[2017-08-18] MEDS: DOCUSATE SODIUM 100 MG CAPSULE PO SCH ×2 (08:31→20:17)
[2017-08-18] MEDS: PredniSONE 20 MG TABLET PO SCH (08:31)
[2017-08-18] MEDS: -PHARMACY NOTE- MISC SCH ×2 (09:00)
[2017-08-18 11:22] LABS: GLUCOSE COMMENT 1 Juice/Food/D50 Given; GLUCOSE,POINT OF CARE 69 MG/DL (70-110)
[2017-08-18] MEDS: CALCIUM OYSTER SHELL 500 MG TABLET PO SCH ×3 (11:42→20:17)
[2017-08-18 19:41] LABS: GLUCOSE,POINT OF CARE 86 MG/DL (70-110)
[2017-08-18 19:41] LABS: GLUCOSE,POINT OF CARE 104 MG/DL (70-110)
[2017-08-18 21:57] LABS: GLUCOSE,POINT OF CARE 119 MG/DL (70-110)
[2017-08-19 04:15] VITALS: BP 108/61
[2017-08-19 06:12] LABS: BASOPHILS % (AUTO) 0.3 % (0.0-2.0); EOSINOPHILS % (AUTO) 2.2 % (1.0-6.0); HEMATOCRIT 41.5 % (41-53); HEMOGLOBIN 13.9 g/dL (13.5-17.5); LYMPHOCYTES # (AUTO) 3.8 K/uL (1.0-4.8); LYMPHOCYTES % (AUTO) 19.6 % (22.0-44.0); MEAN CORPUSCULAR HGB CONC 33.5 G/dL (31.0-37.0); MEAN CORPUSCULAR VOLUME 87 fL (80-100); MONOCYTES # (AUTO) 1.5 K/uL (0.1-1.0); MONOCYTES % (AUTO) 7.9 % (2.0-9.0); NEUTROPHILS # (AUTO) 13.7 K/uL (1.8-7.7); PLATELET COUNT (AUTO) 172 K/uL (150-450); RED CELL DISTRIBUTION WIDTH 13.8 % (11.5-14.5); WHITE BLOOD COUNT (AUTO) 19.5 K/uL (4.5-11.0)
[2017-08-19 06:20] LABS: INR 1.1 (0.9-1.1)
[2017-08-19 06:32] LABS: GLUCOSE,POINT OF CARE 88 MG/DL (70-110)
[2017-08-19 07:01] LABS: ANION GAP 8 mmol/L (8-16); CALCIUM, TOTAL 8.7 mg/dL (8.8-10.5); CARBON DIOXIDE 30 mmol/L (22-29); CHLORIDE 104 mmol/L (98-107); CREATININE 0.76 mg/dL (0.60-1.30); GLOMERULAR FILTR. RATE CALC > 60 mL/min (>60); PHOSPHORUS 4.8 mg/dL (2.5-4.9); POTASSIUM 3.5 mmol/L (3.5-5.1); SODIUM SERUM 142 mmol/L (136-145); UREA NITROGEN, BLOOD 6 mg/dL (7-18)
[2017-08-19 07:51] VITALS: BP 106/74
[2017-08-19] MEDS: DOCUSATE SODIUM 100 MG CAPSULE PO SCH ×2 (07:57→20:47)
[2017-08-19] MEDS: PredniSONE 20 MG TABLET PO SCH (07:57)
[2017-08-19] MEDS: PANTOPRAZOLE SODIUM 40 MG DR TABLET PO SCH (07:57)
[2017-08-19] MEDS ORDERED: CALCIUM GLUCONATE 100 MG/ML 10 ML IVP ONE (08:30)
[2017-08-19] MEDS: -PHARMACY NOTE- MISC SCH ×2 (09:00)
[2017-08-19] MEDS: CALCIUM OYSTER SHELL 500 MG TABLET PO SCH ×3 (09:25→20:47)
[2017-08-19 11:44] VITALS: BP 105/58
[2017-08-19 15:56] VITALS: BP 120/52
[2017-08-19] MEDS ORDERED: SODIUM CHLORIDE 0.9% 1,000 ML IV ONE (16:34)
[2017-08-19 18:08] LABS: GLUCOSE,POINT OF CARE 105 MG/DL (70-110)
[2017-08-19 18:08] LABS: GLUCOSE,POINT OF CARE 105 MG/DL (70-110)
[2017-08-19] MEDS: CALCIUM GLUCONATE 3,000 MG in SODIUM CHLORIDE 0.9% 250 ML IV PRN ×2 (19:59→20:01)
[2017-08-19] MEDS: ALBUMIN HUMAN IV PRN ×2 (19:59→20:01)
[2017-08-19 20:00] VITALS: BP 106/57
[2017-08-19 23:37] VITALS: BP 110/61
[2017-08-20 04:00] VITALS: BP 112/64
[2017-08-20 06:10] LABS: BASOPHILS % (AUTO) 0.3 % (0.0-2.0); EOSINOPHILS % (AUTO) 1.3 % (1.0-6.0); HEMATOCRIT 44.6 % (41-53); HEMOGLOBIN 14.9 g/dL (13.5-17.5); LYMPHOCYTES # (AUTO) 3.9 K/uL (1.0-4.8); LYMPHOCYTES % (AUTO) 18.6 % (22.0-44.0); MEAN CORPUSCULAR HEMOGLOBIN 29.1 pg (26.0-34.0); MEAN CORPUSCULAR HGB CONC 33.4 G/dL (31.0-37.0); MEAN CORPUSCULAR VOLUME 87 fL (80-100); MONOCYTES # (AUTO) 1.5 K/uL (0.1-1.0); MONOCYTES % (AUTO) 7.1 % (2.0-9.0); NEUTROPHILS # (AUTO) 15.2 K/uL (1.8-7.7); NEUTROPHILS % (AUTO) 72.7 % (40.0-70.0); PLATELET COUNT (AUTO) 176 K/uL (150-450); RED BLOOD CELL COUNT(AUTO) 5.13 MIL/uL (4.50-5.90); RED CELL DISTRIBUTION WIDTH 13.8 % (11.5-14.5)
[2017-08-20 06:14] LABS: INR 1.3 (0.9-1.1); PROTHROMBIN TIME 14.1 SEC (9.4-11.6)
[2017-08-20 07:25] VITALS: BP 114/62
[2017-08-20 07:32] LABS: ANION GAP 10 mmol/L (8-16); CALCIUM, TOTAL 8.7 mg/dL (8.8-10.5); CARBON DIOXIDE 26 mmol/L (22-29); CHLORIDE 106 mmol/L (98-107); CREATININE 0.75 mg/dL (0.60-1.30); GLOMERULAR FILTR. RATE CALC > 60 mL/min (>60); PHOSPHORUS 5.1 mg/dL (2.5-4.9); POTASSIUM 3.9 mmol/L (3.5-5.1); SODIUM SERUM 142 mmol/L (136-145); UREA NITROGEN, BLOOD 5 mg/dL (7-18)
[2017-08-20] MEDS: -PHARMACY NOTE- MISC SCH ×2 (09:00)
[2017-08-20] MEDS: PANTOPRAZOLE SODIUM 40 MG DR TABLET PO SCH (09:07)
[2017-08-20] MEDS: DOCUSATE SODIUM 100 MG CAPSULE PO SCH (09:07)
[2017-08-20] MEDS: CALCIUM OYSTER SHELL 500 MG TABLET PO SCH ×2 (09:07→14:28)
[2017-08-20] MEDS: PredniSONE 20 MG TABLET PO SCH (09:07)
[2017-08-20 10:12] LABS: GLUCOSE,POINT OF CARE 74 MG/DL (70-110)
[2017-08-20] MEDS ORDERED: OMEP20TA2 PO (11:32)
[2017-08-20] MEDS ORDERED: PRED20 PO (11:32)
[2017-08-20] MEDS ORDERED: OS500 PO (11:32)
[2017-08-20 11:38] LABS: GLUCOSE,POINT OF CARE 89 MG/DL (70-110)
[2017-08-20 11:39] VITALS: BP 112/58
[2017-08-20 15:28] VITALS: BP 117/82
== END 2017-08-20 16:25 | disposition home or self-care (01) | DRG 59 ==
LOC: EMS 17:50 → 6N 19:30 → 4E 08-10 12:06 → 6N 08-15 18:16
PROVIDERS: ADMIT Internal Medicine; ATTEND Internal Medicine
PROC: 05HM33Z Insertion of Infusion Device into Right Internal Jugular Vein, Percutaneous Approach (ICD-10-PCS; principal; 2017-08-11)
PROC: B5131ZA Fluoroscopy of Right Jugular Veins using Low Osmolar Contrast, Guidance (ICD-10-PCS; 2017-08-11)
PROC: 6A551Z3 Pheresis of Plasma, Multiple (ICD-10-PCS; 2017-08-13)
DX: G36.0 Neuromyelitis optica [Devic] (principal); H46.9 Unspecified optic neuritis; E83.51 Hypocalcemia; G37.3 Acute transverse myelitis in demyelinating disease of central nervous system; H54.3 Unqualified visual loss, both eyes; H54.61 Unqualified visual loss, right eye, normal vision left eye; H54.62 Unqualified visual loss, left eye, normal vision right eye; Z90.49 Acquired absence of other specified parts of digestive tract
CPT/HCPCS: 36245; 36514; 36556; 70553; 72156; 76937; 82962; 83520; 83735; 84100; 85384; 85651; 96365; 99285; A9585; J0610; J1644; J2250; J2930; J3010; J3490; J7030; J7040; J7050; J7060; P9041